=== PATIENT | male | born 1985 | race Caucasian/White ===

== ENCOUNTER 2016-09-05 17:24 | Emergency (ER) | payer MEDICAID ==
--- NOTE | ~2016-09-05 | EKG ---
PATIENT: LEXIS MERCER UNIT #: [id number] Ventricular Rate: 114 BPM Atrial Rate: 114 BPM P-R Interval: 118 ms QRS Duration: 74 ms Q-T Interval: 308 ms QTC Calculation(Bezet): 424 ms P Zirconia: 70 degrees Calculated R Zirconia: 62 degrees Calculated T Zirconia: 53 degrees Diagnosis Line: Sinus tachycardia Diagnosis Line: Otherwise normal ECG Diagnosis Line: When compared with ECG of 09-DEC-2015 01:48, Diagnosis Line: Vent. rate has increased BY 46 BPM Diagnosis Line: Confirmed by OZZIE BOWEN MD ([id number]) on 09/06/2016 Diagnosis Line: 2:50:34 PM INTERPRETING MD: ANDRÉS MCDONOUGH
[~2016-09-05 17:24] MED LIST: ATARAX PO; FELDENE20 MG PO; FLEXERIL PO; KEFLEX500 MG PO; NORCO 5/325 TAB1 TAB PO; PREDNISONE PO; ROBAXIN PO; VICODIN 5/1 TAB 5/50 PO
== END 2016-09-05 17:56 | disposition home or self-care (01) ==
LOC: CFTX 17:24
DX: S33.5XXA Sprain of ligaments of lumbar spine, initial encounter (principal); S23.3XXA Sprain of ligaments of thoracic spine, initial encounter; J45.909 Unspecified asthma, uncomplicated; F32.9 Major depressive disorder, single episode, unspecified; X58.XXXA Exposure to other specified factors, initial encounter; Y92.89 Other specified places as the place of occurrence of the external cause
CPT/HCPCS: 93005; 96372; 99283; J1885